=== PATIENT | male | born 1955 | race African-American/Black ===

== ENCOUNTER 2019-08-15 07:03 | Inpatient (IN) | payer BC ==
[~2019-08-15] VITALS: Ht 177.8 cm; Wt 98.9 kg
[2019-08-15] VITALS (11 sets, daily range): BP systolic 155–198; BP diastolic 52–121
[2019-08-15 08:06] LABS: ABSOLUTE NEUTROPHILS 8.9 thou/uL (1.4-8.2); BASOPHILS 0.5 % (0.0-2.0); EOSINOPHILS 0.4 % (0.0-3.0); HEMATOCRIT 44.4 % (42.0-52.0); HEMOGLOBIN 15.5 gm/dL (14.0-18.0); LYMPHOCYTES 7.5 % (24.0-44.0); MCH 32.5 pg (26.0-34.0); MCHC 34.9 g/dL (28.0-37.0); MCV 93.2 fL (80.0-100.0); MONOCYTES 4.1 % (1.0-8.0); PLATELET COUNT 211 thou/uL (150-400); POLYS 87.5 % (36.0-66.0); RBC 4.77 mil/uL (4.50-6.00); RDW 12.9 % (10.5-14.5); WBC 10.2 thou/uL (4.0-11.0)
[2019-08-15 08:19] LABS: CREATININE 1.2 mg/dL (0.7-1.3); POTASSIUM 3.8 mmol/L (3.5-5.1)
[2019-08-15 08:29] LABS: ALBUMIN 3.5 g/dL (3.4-5.0); TOTAL BILIRUBIN 0.4 mg/dL (<0.1-1.0); TOTAL PROTEIN 7.6 g/dL (6.4-8.2); TROPONIN-I 0.23 ng/mL (<0.06)
[2019-08-15] MEDS ORDERED: TRIBENZOR 20-51 EACH PO (08:36)
[2019-08-15] MEDS ORDERED: HUMALOG100 UNIT/1 SUBQ (08:37)
[2019-08-15] MEDS ORDERED: NAPROXEN SODIU220 M2 PO (08:38)
[2019-08-15] MEDS ORDERED: LANTUS SUBQ (08:38)
--- NOTE | 2019-08-15 10:01 | NUR ---
pt went to dental laboratory technician
[2019-08-15 10:02] LABS: APTT 30.1 Seconds (24.5-32.8)
--- NOTE | 2019-08-15 13:02 | NUR ---
2 CC OF AIR REMOVED FROM RADIAL CLOSURE DEVICE.
--- NOTE | 2019-08-15 13:14 | NUR ---
2 CC OF AIR REMOVED FROM RADIAL CLOSURE DEVICE
--- NOTE | 2019-08-15 13:35 | NUR ---
NO FURTHER AIR TO BE DRAWN FROM RADIAL CLOSURE DEVICE. WILL LEAVE ON FOR ANOTHER HOUR. PT AMBULATES TO BR WITHOUT DIFFICULTIES.
--- NOTE | 2019-08-15 13:55 | CATHLAB ---
[facility] [address] [place] [address] INVASIVE PROCEDURE REPORT Name: ANTONY MANNING Room #: 150-3 ADM IN M.R.#: [id number] Admission: 08/15/19 Attend Phys: Twin Hatfield MD Discharge: Date of : 57 Report #: [id number] THIS REPORT FOR: cc: Wilson Santizo,Vinayak Romero MD ~ APPROVED REPORT Study performed: 08/15/2019 10:09:52 Patient Details Patient Status: ED Room #: The patient is a 64 year-old male Event Personnel Vinayak Rangel Line Service Supervisor, Betty Mir RTR, SENIOR IT ARCHITECT Monitor, Jennifer Beckwith RN RN, Sarahi Pompa Procedures Performed Art Access - R radial artery Coronary Angiography Only [id number] CORANG ADELE Place w/wo Plasty Single LAD 500702 82073 Initial Mod Sed Same Phys/QHP Gr5y 193572 22794 Mod Sed Same Phys/QHP Ea 045209 83641 Mod Sed Same Phys/QHP Ea 217569 Hemostasis with Hemoband Indication Non-STEMI , Dyspnea, Chest pain Risk Factors Cerebrovascular DiseaseFamily History, Hypercholesterolemia, Hypertension, Diabetes Tobacco History () Previous Procedures/Diagnoses Previous CVA Procedure Narrative The Right Wrist^ was infiltrated with 1% Lidocaine subcutaneous anesthesia. A TRANSRADIAL SLENDER 6F GLIDESHEATH KIT #109421 sheath was inserted into the Right Radial Artery^. Coronary angiography was performed using coronary diagnostic catheters. The right coronary system was accessed and visualized with a JR4 catheter. The left coronary system was accessed and visualized with a 5FR JL 3.5 #[id number] catheter. Closure device was deployed with a Fr regular radial band. The patient tolerated the procedure well and there were no [facility] [address] [place] [address] INVASIVE PROCEDURE REPORT Name: KERRIANTONY ETTRICK Room #: [facility] ADM IN ..#: [id number] Admission: 08/15/19 Attend Phys: Twin Hatfield Discharge: Date of : 57 Report #: [id number] complications associated with the procedure. There was no hematoma. Intraoperative Conscious Sedation Sedation start time: 10:28 Case end Time: 11:26 Fentanyl 50 mcg Versed 1 mg Fluoro Time: 14.80 minutes Dose: DAP 89993.00 cGycm2 3124 mGy Contrast Type and Amount: Omnipaque 185 ml Coronary Angiography The patient's coronary anatomy is right dominant. Diagnostic Cath Left Main The left main artery appears angiographically normal. LAD There is a total occlusion in the midsegment of the LAD. The distal vessel is filled via collateral circulation from the RCA. Diagonal 1 The first diagonal artery has a early takeoff from the LAD, appears angiographically normal. Circumflex Left circumflex artery is a moderate-sized caliber vessel, with a mild stenosis in the proximal segment. OM1 This vessel is a moderate-sized caliber vessel with a severe stenosis in the proximal segment, 75%. OM2 This is a small caliber vessel, appears angiographically normal. Right Coronary The RCA is a dominant vessel, with a mild stenosis proximally. R PDA This vessel is angiographically normal. RPLV This vessel is angiographically normal. Left Ventriculography Left Ventriculography was not performed. Hemodynamics The aortic pressure is 137/64 mmHg with a mean of 92 mmHg. PCI Technique Lesion Percutaneous coronary intervention was performed on the mid left anterior descending artery segment. The lesion stenosis prior to intervention was 100% with ZENAIDA 1 flow. A LizticTA 6FR JL3.5 #938933 Guide Catheter was used to engage the ostium. A Demetrice Wire .014 x 182CM #[id number] Interventional Guidewire was used to cross the [facility] [address] [place] [address] INVASIVE PROCEDURE REPORT Name: ANTONY MANNING ETTRICK Room #: [address] [place] [address] IN ..#: [id number] Admission: 08/15/19 Attend Phys: Twin Hatfield Discharge: Date of : 57 Report #: [id number] lesion. BALLOON DILATION A Balloon catheter Euphora RX 2.5 x 12 #[id number] was inserted and inflated up to 8.00atm for 14seconds. Additional Inflation: 8.00atm for 12seconds. STENT DEPLOYMENT A drug-eluting stent RESOLUTE MANUEL RX 3.0 X 26 #[id number] was inserted and inflated up to 16.00atm for 24seconds. POST STENT DEPLOYMENT BALLOON DILATION A Balloon catheter TREK NC RX 3.25 X 15 #[id number] was inserted and inflated up to 14.00atm for 18seconds. Additional Inflation: 14.00atm for 16seconds. Final angiography reveals 0 % stenosis with ZENAIDA 3 flow. Conclusion 1. Successful insertion of a drug-eluting stent into the total occlusion in the mid LAD segment. 2. Severe stenosis in the proximal segment of OM1, consider staged angioplasty. 3. Mild disease in the left circumflex and RCA. 4. Recommend aggressive risk factor management and dual antiplatelet therapy. <ELECTRONICALLY SIGNED> By: Vinayak Rangel MD 08/15/19 1354 1354 1354 Vinayak Rangel MD /INF
--- NOTE | 2019-08-15 16:53 | EKG ---
[facility] [place] [address] ELECTROCARDIOGRAM REPORT Name: ANTONY MANNING Room #: 202-P ADM IN M.R.#: [id number] Admission: 08/15/19 Attend Phys: Twin Hatfield MD Discharge: Date of : 57 Report #: [id number] THIS REPORT FOR: cc: Wilson Santizo,Elder Willett MD [facility] THIS REPORT FOR: //name// [facility] ED Test Date: 2019-08-15 Test Time: 07:31:46 Pat Name: ANTONY MANNING Department: Room: 202 Gender: M Assistant Manager Quality Management: jayson : 1955 Requested By: Kory Werner Order Number: [id number] MD: Elder Og Measurements Intervals [place] Rate: 74 P: 58 NH: 208 QRS: -47 QRSD: 117 T: 112 QT: 439 QTc: 487 Interpretive Statements Sinus rhythm Leftward axis LVH with secondary repolarization abnormality Compared to ECG 06/07/2004 07:23:[address] and T wave abnormality is less pronounced Electronically Signed On 08-15-2019 16:51:14 CDT by Elder Og [email or web address] <ELECTRONICALLY SIGNED> By: Elder Og MD, [facility] 08/15/19 1651 Elder Og MD, FAC /EPI
--- NOTE | 2019-08-15 16:56 | EKG ---
[facility] [place] [place] [address] ELECTROCARDIOGRAM REPORT Name: ANTONY MANNING Room #: 202-P ADM IN M.R.#: [id number] Admission: 08/15/19 Attend Phys: Twin Hatfield MD Discharge: Date of : 57 Report #: [id number] THIS REPORT FOR: cc: Wilson Santizo,Elder Willett MD [facility] THIS REPORT FOR: //name// [facility] Test Date: 2019-08-15 Test Time: 13:43:36 Pat Name: ANTONY MANNING Department: Room: [facility] Gender: M Quality Liaison: Shruthi ANDERSON : 1955 Requested By: Vinayak Rangel Order Number: [id number] MD: Elder Og Measurements Intervals [place] Rate: 67 P: 21 AZ: 214 QRS: -57 QRSD: 113 T: 118 QT: 446 QTc: 471 Interpretive Statements Sinus rhythm Borderline prolonged [place] interval Left anterior fascicular block Abnormal R-wave progression, late transition Abnormal T, consider ischemia, lateral leads Compared to ECG 06/07/2004 07:23:02 No significant change was found Electronically Signed On 08-15-2019 16:54:29 CDT by Elder Og [email or web address] <ELECTRONICALLY SIGNED> By: Elder Og MD, [facility] 08/15/19 1654 1343 1343 Elder Og MD, [facility] /EPI
--- NOTE | 2019-08-15 18:55 | NUR ---
ARRIVED FROM CATHLAB AT 1400, ASSESSMENT DOCUMENTED. SEE POST CARDIAC CATH ASSESSMENT. POC INTIATED AND WILL CONTIUE WITH POC.
[2019-08-16 00:08] VITALS: BP 168/63
--- NOTE | 2019-08-16 02:10 | NUR ---
A/O X 4.UP INDEPENDENTLY.VOIDS.REQUESTED TYLENOL FOR SLEEP AND WAS GIVEN.NS AT TKO.MONITOR SHOWS SR.POC CONTINUED.
[2019-08-16 05:10] VITALS: BP 153/66
[2019-08-16 05:37] LABS: HEMATOCRIT 42.6 % (42.0-52.0); HEMOGLOBIN 14.3 gm/dL (14.0-18.0); MCH 31.6 pg (26.0-34.0); MCHC 33.6 g/dL (28.0-37.0); MCV 94.1 fL (80.0-100.0); RBC 4.53 mil/uL (4.50-6.00); RDW 12.8 % (10.5-14.5); WBC 9.7 thou/uL (4.0-11.0)
[2019-08-16 05:55] LABS: ALBUMIN 3.1 g/dL (3.4-5.0); CALCIUM 8.3 mg/dL (8.5-10.1); CREATININE 1.3 mg/dL (0.7-1.3); POTASSIUM 3.6 mmol/L (3.5-5.1); TOTAL BILIRUBIN 0.5 mg/dL (<0.1-1.0); TOTAL PROTEIN 6.8 g/dL (6.4-8.2)
[2019-08-16 06:24] LABS: TROPONIN-I 99.74 ng/mL (<0.06)
[2019-08-16 07:03] VITALS: BP 137/70
--- NOTE | 2019-08-16 08:04 | EKG ---
[facility] [place] [address] ELECTROCARDIOGRAM REPORT Name: ANTONY MANNING Room #: 202-P ADM IN M.R.#: [id number] Admission: 08/15/19 Attend Phys: Twin Hatfield MD Discharge: Date of : 57 Report #: [id number] THIS REPORT FOR: cc: Wilson Santizo,Elder Willett MD [facility] THIS REPORT FOR: //name// [facility] Test Date: 2019-08-16 Test Time: 07:32:13 Pat Name: ANTONY MANNING Department: Room: 202 P Gender: M Skip Locator: JANNA : 1955 Requested By: Vinayak Rangel Order Number: [id number] MD: Elder Og Measurements Intervals [place] Rate: 62 P: 26 OK: 213 QRS: -48 QRSD: 119 T: 137 QT: 451 QTc: 458 Interpretive Statements Sinus rhythm Borderline prolonged [place] interval Poor R wave progression Nonspecific intraventricular conduction delay Nonspecific T wave abnormality Compared to ECG 08/15/2019 13:43:36 No significant change was found Electronically Signed On 08-16-2019 8:02:43 CDT by Elder Og [email or web address] <ELECTRONICALLY SIGNED> By: Elder Og MD, [facility] 08/16/19 08 1 1 Elder Og MD, FAC /EPI
[2019-08-16 11:14] VITALS: BP 136/70
--- NOTE | 2019-08-16 12:09 | 2DMMODE ---
[facility] [place] [address] 2 D/M-MODE ECHOCARDIOGRAM Name: ANTONY MANNING Room #: 202-P ADM IN M.R.#: [id number] Admission: 08/15/19 Attend Phys: Twin Hatfield MD Discharge: Date of : 57 Report #: [id number] THIS REPORT FOR: cc: Wilson Santizo,Wilson Barrios,Vinayak Lee MD ~ APPROVED REPORT Study performed: 08/16/2019 11:16:48 EXAM: Comprehensive 2D, Doppler, and color-flow Echocardiogram Patient Location: Bedside Room #: 202 Status: routine BSA: 2.17 HR: 70 bpm BP: 137/70 mmHg Rhythm: NSR Other Information Study Quality: Good Indications Diabetes CAD Chest Pain Hypertension/HDD 2D Dimensions RVDd: 31.34 mm IVSd: 19.22 (7-11mm) LVOT Diam: 22.29 (18-24mm) LVDd: 46.03 mm PWd: 18.73 (7-11mm) Ascending Ao: 32.19 (22-36mm) LVDs: 32.74 (25-40mm) Aortic Root: 31.33 mm IVC: 16.00 mm Volumes Left Atrial Volume (Systole) Single Plane 4CH: 107.45 mL Single Plane 2CH: 133.51 mL LA ESV Index: 60.00 mL/m2 Aortic Valve AoV Peak Navdeep.: 1.85 m/s AO Peak Gr.: 13.63 mmHg LVOT Max P.41 mmHg [facility] [address] [place] [address] 2 D/M-MODE ECHOCARDIOGRAM Name: ANTONY MANNING Room #: 202-P [facility] IN M.R.#: [id number] Admission: 08/15/19 Attend Phys: [facility] Discharge: Date of : 57 Report #: [id number] LVOT Max V: 1.76 m/s MILDRED Vmax: 3.72 cm2 AI Vmax: 4.23 m/s AI [facility]: 3.19 m/s2 AI PHT: 384.10 ms Mitral Valve E/A Ratio: 1.6 MV Decel. Time: 229.61 ms MV E Max Navdeep.: 1.52 m/s MV A Navdeep.: 0.97 m/s MV PHT: 66.59 ms IVRT: 69.20 ms Pulmonary Valve PV Peak Navdeep.: 0.92 m/s PV Peak Gr.: 3.40 mmHg Pulmonary Vein P Vein S: 0.24 m/s P Vein A: 0.12 m/s P Vein D: 0.63 m/s P Vein A Dur.: 73.8 msec P Vein S/D Ratio: 0.38 Left Ventricle The left ventricle is normal size. There is hypokinesis in the apical wall. Severe concentric left ventricular hypertrophy. The overall left ventricular systolic function appears normal. LVEF is >55%. Grade III - reversible restrictive diastolic dysfunction. Right Ventricle The right ventricle is normal size. The right ventricular systolic function is normal. Atria Left atrium is dilated. Right atrium is at the upper limits of normal. Aortic Valve The aortic valve is not well visualized. Aortic valve is calcified. Moderate aortic regurgitation. There is no aortic valvular stenosis. Mitral Valve The mitral valve is normal in structure. Mild mitral regurgitation. No evidence of mitral valve stenosis. Tricuspid Valve [facility] [place] [address] 2 D/M-MODE ECHOCARDIOGRAM Name: ANTONY MANNING Room #: 202-P ADM IN M.R.#: [id number] Admission: 08/15/19 Attend Phys: Twin Hatfield Discharge: Date of : 57 Report #: [id number] The tricuspid valve is normal in structure. There is no tricuspid valve regurgitation noted. Pulmonic Valve The pulmonary valve is normal in structure. There is no pulmonic valvular regurgitation. Great Vessels The aortic root is normal in size. IVC is normal in size and collapses >50% with inspiration. Pericardium There is no pericardial effusion. <Conclusion> The left ventricle is normal size. Severe concentric left ventricular hypertrophy. The overall left ventricular systolic function appears normal. There is hypokinesis in the apical wall. The right ventricle is normal size. Left atrium is dilated. The aortic valve is not well visualized. Aortic valve is calcified. Moderate aortic regurgitation. Mild mitral regurgitation. There is no tricuspid valve regurgitation noted. <ELECTRONICALLY SIGNED> By: Vinayak Rangel MD 08/16/191206 06 06 Vinayak Rangel MD /INF
[2019-08-16 15:22] VITALS: BP 143/74
--- NOTE | 2019-08-16 16:56 | NUR ---
Assumed care approx 0700. Pt alert and oriented. Denies shortness of breath or pain. Issues with hypoglycemia resolved. Radial post cath site C/D/I. Vital signs stable.
[2019-08-16 20:07] VITALS: BP 150/66
[2019-08-17 04:34] VITALS: BP 156/63
--- NOTE | 2019-08-17 04:42 | NUR ---
ASSUMED PT CARE AT 1900. PT IS ALERT AND ORIENTED. NO SIGN OF DISTRESS NOTED IN PT. PT IS AMBULATORY. PT IS EAGER TO GET DISCHARGED AND HE WANTS TO GO HOME. ASSESSMENT COMPLETED AND DOCUMENTED. VITAL SIGNS STABLE. REQUESTED FOR A TYLENOL. SCHEDULED MEDS ADMINISTERED TO PT. NO EVENTS THROUGHOUT THE NIGHT. PT IS STABLE. DENIES ANY FURTHER NEEDS AT THIS TIME.
[2019-08-17 06:16] LABS: CALCIUM 8.4 mg/dL (8.5-10.1); CREATININE 1.5 mg/dL (0.7-1.3); POTASSIUM 3.3 mmol/L (3.5-5.1)
[2019-08-17 06:32] LABS: TROPONIN-I 65.08 ng/mL (<0.06)
[2019-08-17] MEDS ORDERED: EFFIENT10 MG PO ×2 (07:43→09:27)
[2019-08-17] MEDS ORDERED: LIPITOR40 MG PO ×2 (07:43→09:27)
[2019-08-17] MEDS ORDERED: METOPROLOL SUCC50 MG PO ×2 (07:43→08:45)
[2019-08-17] MEDS ORDERED: HYDROCHLOROTH12.5 M1 PO ×2 (07:43→09:27)
[2019-08-17] MEDS ORDERED: BENICAR20 MG PO ×2 (07:43→09:27)
[2019-08-17] MEDS ORDERED: BAYER CHEWABLE81 MG PO (07:43)
--- NOTE | 2019-08-17 10:33 | NUR ---
rec SWS consult. SP with nursing and chart review. Patient admits with nstemi. He is independent with adls airplane captain. No hx of DME. Has health insurance. Lives with . Works probation agent airplane captain. Anticipate no dc needs. Cont to follow if needs arise.
--- NOTE | 2019-08-17 10:49 | NUR ---
DISCHARGING TO HOME. TO FOLLOW UP WITH DR. ACUÑA FOR OUTPATIENT CARDIAC CATH. SR PER TELE WITH FIRST DEGREE [facility]B. WILL CONTINUE TO FOLLOW CLOSELY.
[2019-08-17 11:07] VITALS: BP 156/63
[2019-08-17 11:15] VITALS: BP 156/63
== END 2019-08-17 11:41 | disposition home or self-care (01) | DRG 247 ==
LOC: ER 07:03 → TBA 08:41 → 2N 08:41
PROVIDERS: Emergency Medicine; Internal Medicine Cardiovascular Disease; Nurse Practitioner; ADMIT Hospitalist
PROC: B2111ZZ Fluoroscopy of Multiple Coronary Arteries using Low Osmolar Contrast (ICD-10-PCS; principal; 2019-08-15)
PROC: 4A023N7 Measurement of Cardiac Sampling and Pressure, Left Heart, Percutaneous Approach (ICD-10-PCS; principal; 2019-08-15)
PROC: 027034Z Dilation of Coronary Artery, One Artery with Drug-eluting Intraluminal Device, Percutaneous Approach (ICD-10-PCS; principal; 2019-08-15)
DX: I21.4 Non-ST elevation (NSTEMI) myocardial infarction (principal); I10 Essential (primary) hypertension; E11.9 Type 2 diabetes mellitus without complications; F17.210 Nicotine dependence, cigarettes, uncomplicated; E78.5 Hyperlipidemia, unspecified; Z71.6 Tobacco abuse counseling; Z79.82 Long term (current) use of aspirin; Z79.899 Other long term (current) drug therapy; Z86.73 Personal history of transient ischemic attack (TIA), and cerebral infarction without residual deficits
CPT/HCPCS: 10081

== ENCOUNTER 2019-08-24 07:40 | Observation (INO) | payer BC, OTHER ==
[~2019-08-24] VITALS: Ht 177.8 cm; Wt 99.7 kg
[~2019-08-24 07:40] MED LIST: BAYER CHEWABLE81 MG PO; BENICAR20 MG PO; EFFIENT10 MG PO; HUMALOG100 UNIT/1 SUBQ; HYDROCHLOROTH12.5 M1 PO; LANTUS SUBQ; LIPITOR40 MG PO; METOPROLOL SUCC50 MG PO; NAPROXEN SODIU220 M2 PO; TRIBENZOR 20-51 EACH PO
[2019-08-24 09:03] VITALS: BP 165/71
--- NOTE | 2019-08-24 12:59 | EKG ---
[facility] [place] [address] ELECTROCARDIOGRAM REPORT Name: ANTONY MANNING Room #: REG CL M.#: [id number] Admission: 08/24/19 Attend Phys: Vinayak Rangel MD Discharge: Date of : 57 Report #: [id number] THIS REPORT FOR: cc: Wilson Santizo Steven F. DO Couchonnal, Luis F. MD ~ THIS REPORT FOR: //name// [facility] Test Date: 2019-08-24 Test Time: 12:33:19 Pat Name: ANTONY MANNING Department: Room: Gender: Motor Vehicle Parts Interpreter: Shruthi ANDERSON : 1955 Requested By: Vinayak Rangel Order Number: [id number] MD: Twin Hatfield Measurements Intervals [place] Rate: 59 P: 36 NH: 216 QRS: -50 QRSD: 110 T: 134 QT: 481 QTc: 477 Interpretive Statements Sinus rhythm Atrial premature complex Borderline prolonged [place] interval Left anterior fascicular block Abnormal R-wave progression, late transition LVH with secondary repolarization abnormality Compared to ECG 08/16/2019 07:32:13 Electronically Signed On 08-24-2019 12:57:21 CDT by Twin Hatfield [email or web address] <ELECTRONICALLY SIGNED> By: Twin Hatfield MD 08/24/19 1257 1233 1233 Twin Hatfield MD /EPI
--- NOTE | 2019-08-24 13:19 | CATHLAB ---
[facility] [place] [address] INVASIVE PROCEDURE REPORT Name: ANTONY MANNING Room #: REG SHEILA Esparza.#: [id number] Admission: 08/24/19 Attend Phys: Vinayak Rangel MD Discharge: Date of : 57 Report #: [id number] THIS REPORT FOR: cc: Wilson Santizo Steven F. DO Park, Jin S. MD ~ APPROVED REPORT Study performed: 08/24/2019 10:06:14 Patient Details Patient Status: Out-Patient Room #: The patient is a 64 year-old male Event Personnel Vinayak Rangel Natural Gas Basis Trader, John Montez RN, Fernando Jay RN RN, Betty Mir RTR, Aniket Cope Sherra RTR Monitor Procedures Performed Art Access - L radial artery ADELE Place w/wo Plasty Single OM 908560 37204 Initial Mod Sed Same Phys/QHP Gr5y 517146 47960 Mod Sed Same Phys/QHP Ea 607313 Hemostasis w/ Vasoseal Indication Dyspnea, Unstable angina , Chest pain, The patient presents for staged PCI of a severe occlusion involving a moderate-sized OM1 vessel. Please see the original cardiac catheterization report for full details, when he presented with his non-ST elevation ME. Risk Factors Hypercholesterolemia, Coronary Artery DiseaseHypertension, Diabetes Tobacco History () Previous Procedures/Diagnoses Previous PCI, Previous ME Procedure Narrative The Left Wrist^ was infiltrated with 1% Lidocaine subcutaneous anesthesia. A TRANSRADIAL SLENDER 6F GLIDESHEATH KIT #054467 sheath was inserted into the Left Radial Artery^. Coronary angiography was performed using coronary diagnostic catheters. The left coronary system was accessed and visualized with a 5FR JR 4 #[id number] catheter. The patient tolerated the procedure well and there were no [facility] [address] [place] [address] INVASIVE PROCEDURE REPORT Name: KERRIANTONY HUYNH Room #: REG [facility]#: [id number] Admission: 08/24/19 Attend Phys: Vinayak Rangel MD Discharge: Date of : 57 Report #: [id number] complications associated with the procedure. There was no hematoma. Intraoperative Conscious Sedation Sedation start time: 1045 Case end Time: 1128 Fentanyl 50 mcg Versed 2 mg Fluoro Time: 7.12 minutes Dose: DAP 7713.80 cGycm2 1005 mGy Contrast Type and Amount: Visipaque 160 ml Coronary Angiography The patient's coronary anatomy is right dominant. Diagnostic Cath OM1 The OM1 is a moderate-sized caliber vessel with a severe occlusion of the proximal segment, 80%. Hemodynamics The aortic pressure is 147/54 mmHg with a mean of 98 mmHg. PCI Technique Lesion Percutaneous coronary intervention was performed on the first obtuse marginal branch segment. The lesion stenosis prior to intervention was 80% with ZENAIDA 3 flow. A VISTA 6FR XB 3.5 #447933 Guide Catheter was used to engage the ostium. A Luge Wire .014 x 182CM #[id number] Interventional Guidewire was used to cross the lesion. BALLOON DILATION A Balloon catheter Euphora RX 2.5 x 12 #[id number] was inserted and inflated up to 8.00atm for 13seconds. STENT DEPLOYMENT A drug-eluting stent RESOLUTE MANUEL RX 3.0 X 15 #[id number] was inserted and inflated up to 14.00atm for 21seconds. POST STENT DEPLOYMENT BALLOON DILATION A Balloon catheter Euphora NC RX 3.0 x 12 #[id number] was inserted and inflated up to 18.00atm for 17seconds. Final angiography reveals 0 % stenosis with ZENAIDA 3 flow. Conclusion 1. Successful insertion of a drug-eluting stent into the [facility] [address] [place] [place] [address] INVASIVE PROCEDURE REPORT Name: ANTONY MANNING Room #: REG CL [facility]#: [id number] Admission: 08/24/19 Attend Phys: Vinayak Rangel MD Discharge: Date of : 57 Report #: [id number] obtuse marginal artery. 2. The LAD stent is widely patent. 3. Recommend dual antiplatelet therapy and aggressive risk factor management. <ELECTRONICALLY SIGNED> By: Vinayak Rangel MD 08/24/19 1317 16 16 Vinayak Rangel MD /INF
--- NOTE | 2019-08-24 14:36 | NUR ---
REC PT APPROX 1430, A&0X4, UP AD MARSHALL, KNOWS RESTRICTIONS, 2ML AIR REMOVED PRIOR TO ARRIVAL, SIX LEFT, SET ALARM FOR EVERY 15 MIN. HOOKED UP TO TELE AND IVF, LIMB ALERT ON, WATCHING TELEVISION. SEE SEPARATE INTERVENTIONS FOR ASSESSMENTS. WILL CONTINUE TO MONITOR. SEE DATA FLOW SHEET FOR VS. ENCOURAGED PT TO USE CALL LIGHT FOR ANY NEEDS IN BETWEEN NURSE BEING IN ROOM AND NOT; HE COMPLIES
--- NOTE | 2019-08-24 15:38 | NUR ---
CALLED PHYSICIAN, DR. ACUÑA, TO LET HIM KNOW PT WAS STILL HAVING THE INDIGESTION, BURPING, GAS, ELEVATED B/P (SAME RANGE PRIOR TO ADMISSION TO CCU) AND ASKED FOR TYLENOL AND SOMETHING FOR HIS INDIGESTION. PT IS HAVING HUGE BELCHES W/RELIEF
[2019-08-24 16:30] VITALS: BP 172/58
[2019-08-24 20:16] VITALS: BP 157/51
[2019-08-25 00:02] VITALS: BP 176/66
[2019-08-25 03:08] VITALS: BP 173/66
--- NOTE | 2019-08-25 03:22 | NUR ---
UP IN ROOM WITH STEADY GAIT. STATES HEARTBURN IS MUCH BETTER AND DOES NOT NEED FURTHER MEDICATION. SLEEPIN IN RECLINER AND ON COUCH TRIPODDING ON OVER TABLE. STATES THE BED IS TO UNCOMFORTABLE. WORKING ON GOALS AND PLAN OF CARE FOR NOC. UP AD MARSHALL IN ROOM. CONTINUE TO ASSES CLOSELY.
[2019-08-25 04:48] LABS: HEMATOCRIT 38.5 % (42.0-52.0); HEMOGLOBIN 13.1 gm/dL (14.0-18.0); MCH 31.7 pg (26.0-34.0); MCHC 34.1 g/dL (28.0-37.0); RBC 4.14 mil/uL (4.50-6.00); RDW 12.5 % (10.5-14.5); WBC 8.8 thou/uL (4.0-11.0)
[2019-08-25 05:00] LABS: CREATININE 1.1 mg/dL (0.7-1.3); POTASSIUM 3.8 mmol/L (3.5-5.1); TOTAL BILIRUBIN 0.4 mg/dL (<0.1-1.0); TOTAL PROTEIN 7.1 g/dL (6.4-8.2)
--- NOTE | 2019-08-25 05:21 | NUR ---
STATES THE HEARTBURN IS COMING BACK AND THAT HE JUST HASN'T RESTED WELL TONIGHT. STATES IT IS NOT BAD PRIOR TO PROCEDURE BUT REMAINS CONTINUOS. HE IS BELCHING, BURPING AND PASSING GAS FREQUENTLY AND IT DOES NOT SMELL, IT RELIEVES THE HEARTBURN FOR SHORT PERIODS OF TIME. WILL CONTINUE TO ASSES CLOSELY.
[2019-08-25 07:00] VITALS: BP 164/72
[2019-08-25] MEDS ORDERED: BRILINTA90 MG PO (08:06)
--- NOTE | 2019-08-25 08:26 | EKG ---
[facility] [place] [address] ELECTROCARDIOGRAM REPORT Name: ANTONY MANNING Room #: 209-P ADM [facility] M.R.#: [id number] Admission: 08/24/19 Attend Phys: Vinayak Rangel MD Discharge: Date of : 57 Report #: [id number] THIS REPORT FOR: cc: Wilson Santizo,Elder Willett MD [facility] ~ THIS REPORT FOR: //name// [facility] Test Date: 2019-08-25 Test Time: 07:05:17 Pat Name: ANTONY MANNING Department: Room: 209 P Gender: M Frog Or Oyster Farmworker: Roscoe HERNANDEZ : 1955 Requested By: Vinayak Rangel Order Number: [id number] MD: Elder Og Measurements Intervals [place] Rate: 62 P: 63 LA: 207 QRS: -36 QRSD: 112 T: 124 QT: 435 QTc: 442 Interpretive Statements Sinus rhythm LVH with secondary repolarization abnormality Anterior Q waves, possibly due to LVH Compared to ECG 08/24/2019 12:33:19 Atrial premature complex(es) no longer present Electronically Signed On 08-25-2019 8:24:15 CDT by Elder Og [email or web address] <ELECTRONICALLY SIGNED> By: Elder Og MD, [facility] 08/25/19 0824 4 4 Elder Og MD, FAC /EPI
[2019-08-25 08:38] VITALS: BP 164/72
[2019-08-25 08:46] VITALS: BP 164/72
--- NOTE | 2019-08-25 09:32 | NUR ---
ASSUMED CARE APPROX 0700. PT READY TO BE DISCHARGED. ASSESSMENT CHARTED AND VSS. TELE MONITOR REMOVED FROM PT AND IV D/C'D. DISCHARGE PAPERWORK/INSTRUCTIONS DISCUSSED WITH PT. PT DENIES ANY QUESTIONS OR CONCERNS REGARDING DISCHARGE PAPERWORK AT THIS TIME. PT ESCORTED OUT TIMELY.
== END 2019-08-25 10:08 | disposition home or self-care (01) ==
LOC: CATH 07:40 → 2N 16:02
PROVIDERS: ADMIT Internal Medicine Cardiovascular Disease
DX: I25.110 Atherosclerotic heart disease of native coronary artery with unstable angina pectoris (principal); E78.5 Hyperlipidemia, unspecified; I10 Essential (primary) hypertension; E11.9 Type 2 diabetes mellitus without complications; Z87.891 Personal history of nicotine dependence
CPT/HCPCS: 10797

== ENCOUNTER 2019-09-03 08:44 | Emergency (ER) | payer BC, OTHER ==
[~2019-09-03] VITALS: Ht 177.8 cm; Wt 98.9 kg
[~2019-09-03 08:44] MED LIST changes: +BRILINTA90 MG PO
[2019-09-03 09:25] LABS: ABSOLUTE NEUTROPHILS 7.2 thou/uL (1.4-8.2); BASOPHILS 0.7 % (0.0-2.0); EOSINOPHILS 2.1 % (0.0-3.0); HEMATOCRIT 39.2 % (42.0-52.0); HEMOGLOBIN 13.1 gm/dL (14.0-18.0); MCH 31.4 pg (26.0-34.0); MCHC 33.4 g/dL (28.0-37.0); MCV 93.8 fL (80.0-100.0); MONOCYTES 7.3 % (1.0-8.0); PLATELET COUNT 268 thou/uL (150-400); POLYS 78.9 % (36.0-66.0); RBC 4.18 mil/uL (4.50-6.00); RDW 12.6 % (10.5-14.5); WBC 9.1 thou/uL (4.0-11.0)
[2019-09-03 09:28] LABS: ANION GAP 9 mmol/L (7-16); BUN 12 mg/dL (7-18); CHLORIDE 104 mmol/L (98-107); CO2 26 mmol/L (21-32); CREATININE 1.4 mg/dL (0.7-1.3); GLUCOSE 129 mg/dL (74-106); SODIUM 139 mmol/L (136-145)
[2019-09-03 09:38] LABS: SGOT 24 U/L (15-37); SGPT 21 U/L (30-65); TOTAL BILIRUBIN 0.4 mg/dL (<0.1-1.0); TOTAL PROTEIN 7.2 g/dL (6.4-8.2); TROPONIN-I <0.06 ng/mL (<0.06)
[2019-09-03 09:41] LABS: DIRECT BILIRUBIN < 0.1 mg/dL (<0.1-0.2)
--- NOTE | 2019-09-03 11:02 | EKG ---
[facility] [place] [address] ELECTROCARDIOGRAM REPORT Name: ANTONY MANNING Room #: REG [facility].#: [id number] Admission: 09/03/19 Attend Phys: Discharge: Date of : 57 Report #: [id number] THIS REPORT FOR: cc: Wilson Santizo Steven F. DO Park, Jin S. MD ~ THIS REPORT FOR: //name// [facility] ED Test Date: 2019-09-03 Test Time: 08:46:05 Pat Name: ANTONY MANNING Department: Room: Gender: M Incident Manager: kkjesus alberto : 1955 Requested By: Edwige Obregon Order Number: [id number] MD: Vinayak Rangel Measurements Intervals [place] Rate: 75 P: 81 NC: 205 QRS: -34 QRSD: 112 T: 112 QT: 423 QTc: 473 Interpretive Statements Sinus rhythm Probable left atrial enlargement LVH with secondary repolarization abnormality Compared to ECG 08/25/2019 07:05:17 Q waves no longer present Electronically Signed On 09-03-2019 11:00:45 CDT by Vinayak Rangel [email or web address] <ELECTRONICALLY SIGNED> By: Vinayak Rangel MD 09/03/19 1100 5 5 Vinayak Rangel MD /JAMAAL
[2019-09-03 12:50] VITALS: BP 160/77
== END 2019-09-03 12:50 | disposition home or self-care (01) ==
LOC: ER 08:44
PROVIDERS: Emergency Medicine
DX: R07.89 Other chest pain (principal); R00.2 Palpitations; I10 Essential (primary) hypertension; E11.9 Type 2 diabetes mellitus without complications; F17.210 Nicotine dependence, cigarettes, uncomplicated; Z86.73 Personal history of transient ischemic attack (TIA), and cerebral infarction without residual deficits; Z95.5 Presence of coronary angioplasty implant and graft; Z79.82 Long term (current) use of aspirin; Z79.4 Long term (current) use of insulin; Z79.899 Other long term (current) drug therapy

== ENCOUNTER → 2020-01-18 | Outpatient (CLI) | payer BC, OTHER | LOC: SJCVCIMAG 07:02 | PROVIDERS: ATTEND Internal Medicine Cardiovascular Disease | DX: I65.23 Occlusion and stenosis of bilateral carotid arteries (principal); R00.0 Tachycardia, unspecified; I25.10 Atherosclerotic heart disease of native coronary artery without angina pectoris; F17.200 Nicotine dependence, unspecified, uncomplicated; Z79.899 Other long term (current) drug therapy ==

== ENCOUNTER → 2020-05-02 | Outpatient (CLI) | payer BC, OTHER | LOC: SJCVCIMAG 07:59 | PROVIDERS: ATTEND Internal Medicine Cardiovascular Disease | DX: I08.3 Combined rheumatic disorders of mitral, aortic and tricuspid valves (principal); I25.10 Atherosclerotic heart disease of native coronary artery without angina pectoris; I11.0 Hypertensive heart disease with heart failure; I50.9 Heart failure, unspecified; E11.9 Type 2 diabetes mellitus without complications; I25.2 Old myocardial infarction; F17.200 Nicotine dependence, unspecified, uncomplicated; Z98.61 Coronary angioplasty status ==

== ENCOUNTER → 2020-11-07 | Outpatient (CLI) | payer BC, OTHER | LOC: SJCVCIMAG 08:04 | PROVIDERS: ATTEND Internal Medicine Cardiovascular Disease | DX: I65.23 Occlusion and stenosis of bilateral carotid arteries (principal); I44.0 Atrioventricular block, first degree; R94.31 Abnormal electrocardiogram [ECG] [EKG]; R00.1 Bradycardia, unspecified; E78.00 Pure hypercholesterolemia, unspecified; I25.10 Atherosclerotic heart disease of native coronary artery without angina pectoris; I50.30 Unspecified diastolic (congestive) heart failure; F17.210 Nicotine dependence, cigarettes, uncomplicated; I11.0 Hypertensive heart disease with heart failure; E11.9 Type 2 diabetes mellitus without complications; E78.5 Hyperlipidemia, unspecified; Z88.8 Allergy status to other drugs, medicaments and biological substances; Z91.013 Allergy to seafood; Z79.82 Long term (current) use of aspirin; Z79.4 Long term (current) use of insulin; Z79.899 Other long term (current) drug therapy; Z86.73 Personal history of transient ischemic attack (TIA), and cerebral infarction without residual deficits ==